=== PATIENT | male | born 1975 | race Caucasian/White ===

== ENCOUNTER 2020-09-09 10:28 | Emergency (ER) | payer SELFPAY ==
[~2020-09-09] VITALS: Ht 180.3 cm; Wt 89.9 kg
--- NOTE | 2020-09-09 10:40 | NUR ---
pt ambulates to room with steady gait. security notified that pt has concealed weapon. security to room at this time to confiscate pt gun.
--- NOTE | 2020-09-09 10:54 | NUR ---
REPORT OF PT TO RN CHAPARRO AT THIS TIME. ALL QUESTIONS ANSWERED.
[2020-09-09] MEDS ORDERED: KETOROLAC 30 MG/1 ML IM ONE (11:30)
[2020-09-09] MEDS ORDERED: KETOROLAC 30 MG/1 ML ONE (11:42)
[2020-09-09 11:43] LABS: BASOPHILS % (AUTO) 0 % (0-1); EOSINOPHILS % (AUTO) 2 % (1-7); LYMPHOCYTES % (AUTO) 34 % (22-44); MEAN CORPUSCULAR HGB CONC 34.1 g/dL (33.2-36.2); MEAN PLATELET VOLUME 6.7 fL (7.4-10.4); MONOCYTES % (AUTO) 9 % (2-9); NEUTROPHILS % (AUTO) 55 % (42-75); PLATELET COUNT 250 x10^3/uL (130-400); RED BLOOD COUNT 5.06 x10^6/uL (4.38-5.82); RED CELL DISTRIBUTION WIDTH 12.9 % (9.4-14.8)
[2020-09-09 11:55] LABS: ALBUMIN 3.7 g/dL (3.4-5.0); ANION GAP 4 mmol/L (5-15); CALCIUM 8.4 mg/dL (8.5-10.1); CHLORIDE 108 mmol/L (98-107); CREATININE 0.97 mg/dL (0.7-1.3)
[2020-09-09 11:58] VITALS: BP 128/80
[2020-09-09 12:00] LABS: TROPONIN I < 0.015 ng/mL (0.000-0.045)
== END 2020-09-09 12:37 | disposition home or self-care (01) ==
LOC: ED 11:25
DX: R07.89 Other chest pain (principal); R00.1 Bradycardia, unspecified
CPT/HCPCS: 36415; 71045; 80048; 82040; 84484; 85025; 93005; 96372; 99285; J1885